=== PATIENT | female | born 1995 | race African-American/Black ===

== ENCOUNTER → 2023-05-02 15:25 | Outpatient (BNV) | payer BC, SELFPAY | PROVIDERS: Visit Provider Internal Medicine | DX: D50.0 Iron deficiency anemia secondary to blood loss (chronic) (principal); N92.0 Excessive and frequent menstruation with regular cycle | CPT/HCPCS: 99203; 99213 ==

== ENCOUNTER 2023-05-15 13:48 | Outpatient (REF) | payer BC, SELFPAY | END 2023-05-15 13:49 | disposition home or self-care (01) | LOC: HO.MDS 13:48 | PROVIDERS: Visit Provider Internal Medicine | DX: D50.8 Other iron deficiency anemias (principal) | CPT/HCPCS: 96365; J1756 ==

== ENCOUNTER 2023-05-21 10:46 | Outpatient (REF) | payer BC, SELFPAY | END 2023-05-21 10:47 | disposition home or self-care (01) | LOC: HO.MDS 10:46 | PROVIDERS: Visit Provider Internal Medicine | DX: D50.8 Other iron deficiency anemias (principal) | CPT/HCPCS: 96365; J1756 ==

== ENCOUNTER 2023-06-13 07:04 | Outpatient (REF) | payer BC, MEDICAID, SELFPAY | END 2023-06-13 07:05 | disposition home or self-care (01) | LOC: HO.MDS 07:04 | PROVIDERS: Visit Provider Internal Medicine | DX: D50.8 Other iron deficiency anemias (principal) | CPT/HCPCS: 96365; J1756 ==

== ENCOUNTER 2023-06-29 13:32 | Outpatient (REF) | payer BC, SELFPAY | END 2023-06-29 13:33 | disposition home or self-care (01) | LOC: HO.MDS 13:32 | PROVIDERS: Visit Provider Internal Medicine | DX: D50.8 Other iron deficiency anemias (principal) | CPT/HCPCS: 96365; J1756 ==

== ENCOUNTER 2023-07-16 13:47 | Outpatient (REF) | payer BC, SELFPAY | END 2023-07-16 13:48 | disposition home or self-care (01) | LOC: HO.MDS 13:47 | PROVIDERS: Visit Provider Internal Medicine | DX: D50.8 Other iron deficiency anemias (principal) | CPT/HCPCS: 96365; J1756 ==

== ENCOUNTER 2023-09-07 07:00 | Outpatient (REF) | payer BC, SELFPAY | END 2023-09-07 07:01 | disposition home or self-care (01) | LOC: HO.MDS 07:00 | PROVIDERS: Visit Provider Internal Medicine | DX: D50.8 Other iron deficiency anemias (principal) | CPT/HCPCS: 96365; J1756 ==